=== PATIENT | male | born 1985 | race Caucasian/White ===

== ENCOUNTER 2019-06-07 15:28 | Emergency (ER) | payer OTHER, SELFPAY ==
--- NOTE | 2019-06-07 15:33 | XR_ITS ---
WS: [id number] XR chest 2V* [id number] REASON FOR EXAM: cough FINDINGS: The heart and mediastinum were normal. The lung martell are well aerated. No definite infiltrates, pneumonia, pleural effusion, pulmonary khalida ma, are pneumothorax. The hilum and apices are normal. No osseous abnormalities. XR/XR chest 2V* [id number] IMPRESSION: Negative chest for active pathology.
[2019-06-07 15:34] VITALS: BP 169/96; PULSE 102; RESP 16; TEMP 36.9; O2SAT 98; BMI 28.5
--- NOTE | 2019-06-07 16:00 | W.ED.URI ---
HPI - URI/Sore Throat General: Chief Complaint: Upper Respiratory Infection Stated Complaint: Coughing/sore throat Time Seen by Provider: 06/07/19 15:40 Source: patient Mode of arrival: ambulatory Limitations: no limitations History of Present Illness: HPI Narrative: Patient comes in today with complaints of sore throat and cough. Patient states that he has been ill for about 2 weeks and has felt more congestion in his chest and thought he might be trying to get bronchitis. Patient reports no chronic illness. Patient denies smoking. Patient does report that as a child he did have some asthma. Review of Systems General: Reports: 10 or more systems reviewed and unremarkable except in HPI and below ENMT: Reports: throat pain Resp: Reports: non-productive cough PFSH ED PFSH: Social History Smoking and tobacco status: never smoked Physical Exam Const: COMMON NORMALS: no apparent distress and oriented x3 GENERAL APPEARANCE: cooperative HENMT: COMMON NORMALS: normocephalic, external ears normal, EAC's normal, TM's normal bilaterally and external nose normal HEAD & SCALP: normal to inspection and normocephalic FACE & SINUS: normal facial exam NOSE: external nose normal GENERAL EAR: hearing not grossly impaired EXTERNAL EAR: Yes external ears normal EXTERNAL AUDITORY CANAL: EAC's normal TYMPANIC MEMBRANE: TM's normal bilaterally MOUTH: oral and palatal mucosa normal THROAT: posterior oropharynx abnormal erythema (cobblestoning) Eye: COMMON NORMALS: PERRL and EOMs intact bilaterally PUPIL: Yes PERRL Neck/C-Spine: COMMON NORMALS: full ROM and no lymphadenopathy Lymph: LYMPHATIC: no lymphedema noted Chest: COMMONS NORMALS: inspection of chest normal and palpation of chest normal Resp: COMMON NORMALS: normal respiratory effort AUSCULTATION: rhonchi (mild anterior) Cardio: COMMON NORMALS: regular rate and regular rhythm RATE: regular rate RHYTHM: regular rhythm GI: COMMON NORMALS: normal to inspection, nondistended, normoactive bowel sounds and non-tender : COMMON NORMALS: Yes no CVA tenderness BLADDER/KIDNEY EXAM: Yes no CVA tenderness Back/Pelvis: COMMON NORMALS: no CVA tenderness and thoracic and lumbar spine normal to inspection Extremity: COMMON NORMALS: normal to inspection GENERAL: No edema Neuro: COMMON NORMALS: oriented x3, moves all extremities and no focal motor deficits Psych: COMMON NORMALS: mental status grossly normal and cooperative Skin: COMMON NORMALS: no rashes or lesions noted GENERAL SKIN EXAM: no rashes or lesions noted Course Vital Signs: Vital signs: Vital Signs Temperature 98.5 F 06/07/19 15:34 Pulse Rate 102 H 06/07/19 15:34 Respiratory Rate 16 06/07/19 15:34 Blood Pressure 169/96 06/07/19 15:34 Pulse Oximetry 98 06/07/19 15:34 MDM - URI/Sore Throat MDM Narrative: Medical decision making narrative: Patient comes in today for complaints of cough and sore throat. Exam notes lungs are with good air movement with some mild anterior rhonchi. Skin is warm and dry. Posterior pharynx is erythematous with cobblestoning and posterior sinus drainage. Differential diagnosis includes pneumonia, upper respiratory infection, sinusitis, bronchitis, exacerbation of asthma. Chest x-ray noted no pneumonia. Reviewed exam with patient recommended treatment for bronchitis with 10 mg dexamethasone, azithromycin, and Promethazine DM. Encourage plenty of fluids and follow-up with primary care as needed or return to the ER for increased shortness of breath or high fever. Discharge Plan Discharge Patient Disposition: Home, Self-Care Clinical Impression: Bronchitis Condition: Stable Prescriptions: New azithromycin 500 mg tablet 500 mg PO DAILY Qty: 3 RF: 0 promethazine-DM 6.25-15 mg/5 mL syrup 5 ml PO Q6H PRN (Reason: cough) Qty: 120 RF: 0 Discharge Orders: Discharge Order (Routine); Ordered 06/07/19 Ordered By: Tod Smiley Referrals: Jr David MD [Family Provider] - Discharge Diet: Usual diet Discharge Activity: Increase activity as tolerated Patient Instructions: Acute Bronchitis (ED) Activity Restrictions/Additional Instructions: Drink plenty of fluids Activity as tolerated Medications as directed Follow-up with primary care in one week as needed Return to ER for worsening shortness of breath or high fever 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
[2019-06-07] MEDS: dexamethasone 10 mg/mL INJ IM (16:16)
[2019-06-07 16:49] VITALS: BP 137/97; PULSE 104; RESP 16; TEMP 36.8; O2SAT 97
== END 2019-06-07 16:30 | disposition home or self-care (01) ==
LOC: ER 16:07
PROVIDERS: Emergency Provider Nurse Practitioner Family; Family Provider General Practice
DX: J40 Bronchitis, not specified as acute or chronic (principal)
CPT/HCPCS: 12345; 71046; 96372; 96375; 99281; 99283; J1100

== ENCOUNTER 2020-03-03 13:33 | Emergency (ER) | payer OTHER, SELFPAY ==
[2020-03-03 13:38] VITALS: BP 139/88; PULSE 84; RESP 18; TEMP 36.6; O2SAT 99; BMI 29.4
--- NOTE | 2020-03-03 13:43 | W.ED.GENADLT ---
HPI - General Adult General: Chief complaint: General Medical Stated complaint: body aches Time Seen by Provider: 03/03/20 13:43 Source: patient Mode of arrival: ambulatory Limitations: no limitations History of Present Illness: HPI narrative: 35-year-old male patient comes in today with complaints of generalized body aches, low back pain, sore throat, and fatigue. Patient reports illness since Monday. Patient denies any chills or fever. Patient reports no cough, nausea vomiting, or diarrhea. Review of Systems General: Reports: 10 or more systems reviewed and unremarkable except in HPI and below Const: Reports: body aches and fatigue Musc: Reports: back pain PFSH ED PFSH: Social History Smoking and tobacco status: never smoked Physical Exam Const: COMMON NORMALS: no acute distress and patient oriented x3 GENERAL APPEARANCE: cooperative HENMT: COMMON NORMALS: normocephalic, TM's normal bilaterally and Normal external nose present HEAD & SCALP: normal to inspection and normocephalic NOSE: Normal external nose present TYMPANIC MEMBRANE: TM's normal bilaterally MOUTH: Normal oral and palatal mucosa present THROAT: posterior oropharynx abnormal erythema Eye: GENERAL EYE: appearance normal, both eyes and all related structures Neck/C-Spine: COMMON NORMALS: full ROM Lymph: LYMPHATIC: no lymphadenopathy noted Chest: COMMONS NORMALS: normal inspection of the chest Resp: COMMON NORMALS: normal respiratory effort EFFORT & INSPECTION: Yes able to speak in complete sentences Cardio: COMMON NORMALS: regular rate and regular rhythm RATE: regular rate RHYTHM: regular rhythm GI: COMMON NORMALS: non-tender : COMMON NORMALS: Yes no CVA tenderness BLADDER/KIDNEY EXAM: Yes no CVA tenderness Back/Pelvis: COMMON NORMALS: no CVA tenderness and thoracic and lumbar spine normal to inspection Extremity: COMMON NORMALS: normal to inspection Neuro: COMMON NORMALS: patient oriented x3 and moves all extremities Psych: COMMON NORMALS: mental status grossly normal and cooperative Skin: COMMON NORMALS: no rashes or lesions noted GENERAL SKIN EXAM: no rashes or lesions noted Course Vital Signs: Vital signs: Vital Signs Temperature 97.9 F 03/03/20 13:38 Pulse Rate 84 03/03/20 13:38 Respiratory Rate 18 03/03/20 13:38 Blood Pressure 139/88 03/03/20 13:38 Pulse Oximetry 99 03/03/20 13:38 MDM - General Adult MDM Narrative: Medical decision making narrative: Patient comes in with general body aches and back discomfort starting on Monday. Patient did not record a fever. Patient appears well. Exam notes some clear drainage in posterior pharynx. Skin is warm and dry. Vital signs are normal. Differential diagnosis includes influenza, COVID-19, strep pharyngitis, viral syndrome, upper respiratory infection, renal calculi, UTI. Urinalysis was normal. COVID-19, strep test, and influenza were all negative. Reviewed exam with patient with recommendations for treatment and follow-up. Patient reported understanding of care plan and need for follow-up or return to the emergency department. Lab Data: Labs: Lab Results 03/03/20 03/03/20 03/03/20 Range/Units 14:17 14:17 14:17 Urine Color (Yellow) Urine Appearance (CLEAR) Urine pH (5-7) Ur Specific Gravit y (1.005-1.030) Urine Protein (Negative) Urine Glucose (UA) (Normal) Urine Ketones (Negative) Urine Blood (Negative) Urine Nitrate (Negative) Urine Bilirubin (Negative) Urine Urobilinogen (Negative) mg/dL Ur Leukocyte Jayne ase (Negative) Influenza Type A A g Negative (Negative) Influenza Type B A g Negative (Negative) SARS-CoV-2 Ag (Rap id) Negative (Negative) Group A Strep Rapi d Negative (Negative) 03/03/20 Range/Units 14:48 Urine Color Straw (Yellow) Urine Appearance Clear (CLEAR) Urine pH 6.0 (5-7) Ur Specific Gravit y 1.010 (1.005-1.030) Urine Protein Neg (Negative) Urine Glucose (UA) Norm (Normal) Urine Ketones Negative (Negative) Urine Blood Neg (Negative) Urine Nitrate Negative (Negative) Urine Bilirubin Neg (Negative) Urine Urobilinogen Norm (Negative) mg/dL Ur Leukocyte Jayne ase Negative (Negative) Influenza Type A A g (Negative) Influenza Type B A g (Negative) SARS-CoV-2 Ag (Rap id) (Negative) Group A Strep Rapi d (Negative) Discharge Plan Discharge Patient Disposition: Home Clinical Impression: Viral syndrome Condition: Stable Prescriptions: No Action ibuprofen 200 mg Tablet 200 mg PO Q6H PRN (Reason: fever/pain) RF: 0 Discharge Orders: Discharge ED (Routine); Ordered 03/03/20 Ordered By: Tod Smiley Discharge Diet: Usual diet Discharge Activity: Increase activity as tolerated Patient Instructions: Viral Syndrome (ED) Activity Restrictions/Additional Instructions: Drink plenty of fluids and rest. Use acetaminophen and ibuprofen for discomfort and fever. Healthy diet and activity. Follow-up with primary care in 3 days for persistent symptoms. Return to the emergency department for new concerns. 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
[2020-03-03 15:09] LABS: Add Urine Microscopic? NO
[2020-03-03 15:16] LABS: Bilirubin Urine Neg (Negative); Blood Urine Neg (Negative); Glucose Urine UA Norm (Normal); Ketones Urine Negative (Negative); Leukocyte Esterase Urine Negative (Negative); Nitrate Urine Negative (Negative); Protein Urine Neg (Negative); Urine Appearance Clear (CLEAR); Urine Color Straw (Yellow); Urobilinogen Urine Norm (Negative)
[2020-03-03 15:23] LABS: SARS Covid-2 Antigen Negative (Negative)
[2020-03-03 15:24] LABS: Influenza A by IFA Negative (Negative); Influenza B by IFA Negative (Negative); Rapid Strep A Test Negative (Negative)
[2020-03-03 15:41] VITALS: RESP 18
== END 2020-03-03 15:41 | disposition home or self-care (01) ==
PROVIDERS: Emergency Provider Nurse Practitioner Family
DX: B34.9 Viral infection, unspecified (principal)
CPT/HCPCS: 12345; 81003; 87081; 87426; 87804; 87880; 99281; 99282

== ENCOUNTER 2020-03-17 16:29 | Emergency (ER) | payer OTHER, SELFPAY ==
[2020-03-17 16:40] VITALS: BP 148/107; PULSE 93; RESP 18; TEMP 36.4; O2SAT 97; BMI 29.4
--- NOTE | 2020-03-17 18:49 | XRR_ITS ---
PROCEDURE INFORMATION: Exam: XR Chest, 2 Views Exam date and time: 03/17/2020 7:51 PM Age: 35 years old Clinical indication: Shortness of breath; Additional info: SOB TECHNIQUE: Imaging protocol: XR of the chest Views: 2 views. COMPARISON: CR XR chest 2V* [id number] 06/07/2019 3:45 PM FINDINGS: Lungs: Unremarkable. No consolidation. Pleural space: Unremarkable. No pleural effusion. No pneumothorax. Heart/Mediastinum: Unremarkable. No cardiomegaly. Bones/joints: Unremarkable. XR/XR chest 2V* [id number] IMPRESSION: No acute findings.
--- NOTE | 2020-03-17 20:14 | W.ED.SOB ---
HPI - SOB/Dyspnea General: Chief Complaint: Shortness of Breath/Dyspnea Stated Complaint: SOB Time Seen by Provider: 03/17/20 20:09 Source: patient Mode of arrival: ambulatory Limitations: no limitations History of Present Illness: HPI Narrative: 35-year-old male who states he has had cough along with body aches chills and fever over the last week. He was seen a week ago and had negative flu negative rapid Covid. He states he still concerned he may have Covid as he is at all the symptoms. He denies any shortness of breath. Patient is in no distress here. He denies any worsening improving factors. Associated symptoms: Reports fever(s); Deny abdominal pain, chest pain, nausea or vomiting Review of Systems Const: Reports: fever(s), chills and body aches Eyes: Denies: blurry vision or eye discomfort ENMT: Denies: throat pain or dental pain Card: Denies: chest pain Resp: Reports: dyspnea and non-productive cough GI: Denies: abdominal pain, nausea, vomiting or diarrhea : Denies: dysuria Musc: Denies: neck pain or back pain Skin/Breast: Denies: rash Neuro: Denies: headache(s) Psych: Denies: depression Sesar/Lymph: Denies: easy bruising All/Imm: Denies: urticaria PFSH ED PFSH: Social History Smoking and tobacco status: never smoked Physical Exam Const: COMMON NORMALS: no acute distress, patient oriented x3 and healthy appearing HENMT: COMMON NORMALS: normocephalic and atraumatic HEAD & SCALP: normocephalic and atraumatic Eye: COMMON NORMALS: Equal, round and reactive pupils present and EOMs intact bilaterally PUPIL: Yes Equal, round and reactive pupils present Neck/C-Spine: COMMON NORMALS: full ROM and supple Chest: COMMONS NORMALS: normal inspection of the chest and normal palpation of entire chest wall Resp: COMMON NORMALS: normal respiratory effort, No retractions, No use of accessory muscles and clear to auscultation bilaterally AUSCULTATION: clear to auscultation bilaterally Cardio: COMMON NORMALS: regular rate, regular rhythm and No murmurs present (Cardio) RATE: regular rate RHYTHM: regular rhythm GI: COMMON NORMALS: Normal to inspection, nondistended, normoactive bowel sounds present, Soft to palpation, non-tender and no masses PALPATION: Yes Soft to palpation Extremity: COMMON NORMALS: normal to inspection and full ROM Neuro: COMMON NORMALS: patient oriented x3, moves all extremities and no focal motor deficits Psych: COMMON NORMALS: mental status grossly normal, Normal thought process present and cooperative THOUGHT PROCESS: Normal thought process present Skin: COMMON NORMALS: no rashes or lesions noted and no wounds GENERAL SKIN EXAM: no rashes or lesions noted Course Vital Signs: Vital signs: Vital Signs Temperature 97.5 F L 03/17/20 16:40 Pulse Rate 80 03/17/20 20:17 Respiratory Rate 18 03/17/20 20:17 Blood Pressure 162/97 03/17/20 20:17 Pulse Oximetry 98 03/17/20 20:17 MDM - SOB/Dyspnea MDM Narrative: Medical decision making narrative: Patient presents here with Covid-like symptoms versus a viral upper respiratory infection. Patient is well-appearing here. We will send a PTC Covid and he is stable for discharge and is to follow-up PCP and return if worsening. Imaging Data^: CXR: Attestation: I personally reviewed and interpreted this imaging study as follows: My impression: No acute abnormality Discharge Plan Discharge Patient Disposition: Home Clinical Impression: Upper respiratory infection Qualifiers: URI type: unspecified URI Qualified Code(s): J06.9 - Acute upper respiratory infection, unspecified Condition: Stable Prescriptions: No Action ibuprofen 200 mg Tablet 200 mg PO Q6H PRN (Reason: fever/pain) RF: 0 Discharge Orders: Discharge ED (Routine); Ordered 03/17/20 Ordered By: Lamar Nunez Discharge Diet: Advance as tolerated Discharge Activity: Resume usual activity Patient Instructions: Upper Respiratory Infection (ED) Coding Level of Care Code ED Facility Service Associate for [place]
[2020-03-17 20:17] VITALS: BP 162/97; PULSE 80; RESP 18; O2SAT 98
[2020-03-18 18:32] LABS: Coronavirus Test Green County DETECTED
--- NOTE | 2020-03-21 12:31 | PC.NURSE ---
Patient notified of COVID results at this time.
== END 2020-03-17 20:24 | disposition home or self-care (01) ==
PROVIDERS: Emergency Provider Emergency Medicine
DX: U07.1 COVID-19 (principal); J06.9 Acute upper respiratory infection, unspecified
CPT/HCPCS: 12345; 71046; 87635; 99282